=== PATIENT | female | born 1995 | race Caucasian/White ===

== ENCOUNTER 2016-12-21 14:54 | Emergency (ER) | END 2016-12-21 18:54 | disposition home or self-care (01) | DX: O21.9 Vomiting of pregnancy, unspecified (principal); O99.511 Diseases of the respiratory system complicating pregnancy, first trimester; J45.909 Unspecified asthma, uncomplicated; Z3A.09 9 weeks gestation of pregnancy | CPT/HCPCS: 36415; 76801; 80053; 81001; 84702; 85025; 96374; J2405; J2765; J7030; Z7502 ==

== ENCOUNTER 2017-05-18 16:53 | Emergency (ER) | payer MEDICAID, OTHER ==
[~2017-05-18] VITALS: Wt 52.0 kg
[~2017-05-18 16:53] MED LIST: ALBU8.5H3 INH; METO10TA92 PO; PRENAT PO
[2017-05-18] MEDS ORDERED: ALBU8.5H3 INH (20:10)
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
== END 2017-05-18 20:15 | disposition home or self-care (01) ==
LOC: FTE 16:53
DX: O99.513 Diseases of the respiratory system complicating pregnancy, third trimester (principal); J45.901 Unspecified asthma with (acute) exacerbation; Z3A.31 31 weeks gestation of pregnancy; Z76.0 Encounter for issue of repeat prescription
CPT/HCPCS: 99282

== ENCOUNTER 2017-07-05 17:50 | Outpatient (CLI) | END 2017-07-05 20:33 | disposition home or self-care (01) ==

== ENCOUNTER 2017-07-10 09:34 | Inpatient (IN) | END 2017-07-12 14:36 | disposition home or self-care (01) | DRG 775 ==